=== PATIENT | male | born 1995 | race Asian ===

== ENCOUNTER 2016-12-14 14:43 | Emergency (ER) | payer OTHER ==
[2016-12-14 14:51] VITALS: BP 132/83
--- NOTE | 2016-12-14 17:50 | ED ---
Upper Extremity Pain - HPI Summary HPI Summary: Patient arrives to ED after right index finger was shut in a car door. He states part of the nail was avulsed and only a mild amount of bleeding was noticed. [facility] and sent here for imaging and sutures. Denies numbness/tingling, color changes or temperature change. Denies other injuries. Denies blood thinners or other medications. Patient is otherwise healthy. - History of Current Complaint Chief Complaint: EDExtremityUpper Stated Complaint: FINGER PAIN Time Seen by Provider: 12/14/16 17:17 Hx Obtained From: Patient Mechanism Of Injury: Blunt Trauma - shut in car door Onset/Duration: Started Hours Ago Timing: Constant Severity Initially: Mild Severity Currently: Mild Pain Location: Finger - right index Character: Aching Aggravating Factor(s): Nothing Alleviating Factor(s): Rest, Ice Associated Signs & Symptoms: Positive: Swelling Related History: Dominant Hand Right - Risk Factors Non-Orthopedic Risk Factor: Negative DVT Risk Factors: Negative Septic Arthritis Risk Factor: Negative - Allergies/Home Medications Allergies/Adverse Reactions: Allergies Allergy/AdvReac Type Severity Reaction Status Date / Time No Known Allergies Allergy Verified 12/14/16 14:51 PMH/Surg Hx/FS Hx/Imm Hx Previously Healthy: Yes - Immunization History Hx Pertussis Vaccination: No Immunizations Up to Date: No Infectious Disease History: No Infectious Disease History: Denies: Traveled Outside the [place] in Last 30 Days - Social History Occupation: Student Lives: With Family Alcohol Use: None Hx Substance Use: No Substance Use Type: Reports: None Hx Tobacco Use: No Smoking Status (MU): Never Smoked Tobacco Review of Systems Constitutional: Negative ENT: Negative Respiratory: Negative Gastrointestinal: Negative Positive: no symptoms reported, see HPI Positive: Arthralgia - right index finger Neurological: Negative Psychological: Normal All Other Systems Reviewed And Are Negative: Yes Physical Exam Triage Information Reviewed: Yes Vital Signs On Initial Exam: Initial Vitals Temp Pulse Resp BP Pulse Ox 97.6 F 81 18 132/83 99 12/14/16 14:49 12/14/16 14:49 12/14/16 14:49 12/14/16 14:49 12/14/16 14:49 Vital Signs Reviewed: Yes Appearance: Positive: Well-Appearing, No Pain Distress, Well-Nourished Skin: Positive: Warm, Skin Color Reflects Adequate Perfusion, Other - right index finger tuft frature. soft tissue injury around nailbed with swelling. Medial portion of nail removed. patient refusing provider to pull the full nail off Head/Face: Positive: Normal Head/Face Inspection Eyes: Positive: EOMI, KEVIN, Conjunctiva Clear Neck: Positive: Supple, No Lymphadenopathy Respiratory/Lung Sounds: Positive: Clear to Auscultation, Breath Sounds Present Cardiovascular: Positive: Normal, RRR, Pulses are Symmetrical in both Upper and Lower Extremities Musculoskeletal: Positive: Strength/ROM Intact Neurological: Positive: Normal, Sensory/Motor Intact, Alert, Oriented to Person Place, Time, Speech Normal Psychiatric: Positive: Normal AVPU Assessment: Alert - Filipe Coma Scale Best Eye Response: 4 - Spontaneous Best Motor Response: 6 - Obeys Commands Best Verbal Response: 5 - Oriented Diagnostics - Vital Signs Vital Signs Temp Pulse Resp BP Pulse Ox 12/14/16 17:31 97.6 F 81 18 132/83 99 12/14/16 14:49 97.6 F 81 18 132/83 99 - Laboratory Lab Statement: Any lab studies that have been ordered have been reviewed, and results considered in the medical decision making process. - Radiology No standard instances Xray Interpretation: Positive (See Comments) Radiology Interpretation Completed By: Radiologist - FINDINGS: There is a fracture the tuft with mild distraction. There is soft tissue injury about the nailbed. There are no other bony or soft tissue abnormalities. IMPRESSION: TUFT FRACTURE Course/Dx - Course Course Of Treatment: xray shows: There is a fracture the tuft with mild distraction. There is soft tissue injury. about the nailbed. There are no other bony or soft tissue abnormalities. IMPRESSION: TUFT FRACTURE. occlusive dressing applied. gauze wrapped. patent encouraged to go to [facility] saturday for a wound check. patient is refusing nail removal. swelling out of medial nail where nail is removed with minimal blood. this is not an open fracture. skin avulsion over nail is very superficial. Tetanus up to date. No need for antibiotics based on clean wound protocol from [facility]. Infection precautions given and to return if these signs and symptoms occur. patient agrees to follow up. - Diagnoses Differential Diagnosis/HQI/PQRI: Positive: Contusion, Fracture (Closed), Laceration, Strain, Sprain Provider Diagnoses: Nail avulsion, Closed fracture of tuft of distal phalanx of finger Discharge - Discharge Plan Condition: Stable Disposition: HOME Prescriptions: Cephalexin CAP* [Keflex CAP*] 500 mg PO QID #28 cap MDD 4 Patient Education Materials: Nail Avulsion (ED), Avulsion Fracture (ED) Referrals: Mao Lowe MD [Medical Doctor] - No Primary Care Phys,NOPCP [Primary Care Provider] - Additional Instructions: Follow up with orthopedic physician. Continue with antibiotics for seven days Wrap daily for 4-5 days, then leave open to air. Follow up with your health center in 2 days for a re-check of the wound. Keep splint on the finger until you follow up with orthopedic physician. If you develop any drainage, warmth, worsening redness or develop a fever, come back to ED.
--- NOTE | 2016-12-14 18:21 | RAD ---
INDICATION: Traumatic fracture left second digit COMPARISON: None TECHNIQUE: AP, lateral, and oblique views were obtained. FINDINGS: There is a fracture the tuft with mild distraction. There is soft tissue injury about the nailbed. There are no other bony or soft tissue abnormalities. IMPRESSION: TUFT FRACTURE
== END 2016-12-14 19:09 | disposition home or self-care (01) ==
LOC: ED 14:43
DX: S61.309A Unspecified open wound of unspecified finger with damage to nail, initial encounter (principal); W23.1XXA Caught, crushed, jammed, or pinched between stationary objects, initial encounter; S62.660A Nondisplaced fracture of distal phalanx of right index finger, initial encounter for closed fracture
CPT/HCPCS: 73140; 99282